=== PATIENT | female | born 1990 | race Caucasian/White ===

== ENCOUNTER 2017-04-11 10:40 | Emergency (ER) | payer OTHER ==
[2017-04-11 11:17] LABS: Bilirubin Negative (Negative); Blood, Urine Trace (Negative); Glucose, Urine (Dipstick) Negative (Negative); Leukocyte Negative (Negative); Nitrite Negative (Negative); Protein, Urine (Dipstick) Trace mg/dL (Neg-Trace); Urobilinogen 0.2 mg/dL (0.2-1.0)
[2017-04-11 11:20] LABS: Clarity Hazy (Clear)
[2017-04-11 11:23] LABS: Bacteria/HPF 2+ HPF (None Seen); RBC/HPF 0-3 HPF (0-3); Specific Gravity, Urine 1.031 (1.002-1.036); WBC/HPF 0-3 HPF (0-3)
[2017-04-11 12:09] LABS: Wet Prep Clue Cells Clue Cells PRESENT (None Seen); Wet Prep Trichomonas Trichomonas Absent (None Seen)
[2017-04-12 20:11] LABS: Chlamydia by PCR Not Detected (NotDetected); GC by PCR Not Detected (NotDetected)
== END 2017-04-11 12:33 | disposition home or self-care (01) ==
LOC: NAV ERS 10:40
DX: N76.0 Acute vaginitis (principal); F41.9 Anxiety disorder, unspecified; F31.9 Bipolar disorder, unspecified; F17.210 Nicotine dependence, cigarettes, uncomplicated; Z87.442 Personal history of urinary calculi
CPT/HCPCS: 81003; 81015; 87210; 87480; 87491; 87510; 87591; 87660; 99283